=== PATIENT | male | born 1980 | race African-American/Black ===

== ENCOUNTER 2018-02-18 08:46 | Emergency (ER) | payer OTHER ==
[~2018-02-18] VITALS: Ht 190.5 cm; Wt 172.0 kg
[~2018-02-18 08:46] MED LIST: FLEX10TA PO; NAPR550 PO; Z.0.NO CURRENT MEDS
[2018-02-18 08:52] VITALS: BP 134/83; PULSE 84; RESP 16; TEMP 97.7; O2SAT 100
[2018-02-18] MEDS ORDERED: KETOROLAC TROMETHAMINE 60 MG/2 ML (IM) VIAL IM ONE (09:00)
[2018-02-18] MEDS ORDERED: HYDR25TA5 PO (09:01)
[2018-02-18] MEDS ORDERED: LOSA25TA PO (09:01)
[2018-02-18] MEDS ORDERED: IBUP-232 PO (09:04)
--- NOTE | 2018-02-18 09:05 | PD ---
HPI Chief Complaint: Fall Time Seen by Provider: 08:56 Travel History International Travel<30 days: No Contact w/Intl Traveler<30days: No Traveled to known affect area: No History of Present Illness HPI 37-year-old male describes pain in the lower back. He was leaning against a post, about 4 feet tall by 8 inches thick composed of concrete which was positioned in front of a [employer], when it fell over and rolled against the lower part of the back causing pain, 7/10. No urinary incontinence or fecal incontinence. No numbness tingling or weakness. No fall. No other injury to report. The injury occurred about 40 minutes prior to ER arrival. PFSH Past Medical History Diabetes: Yes Social History Alcohol Use: Yes (12 pack on the weekends) Tobacco Use: Yes (1 PPD) Allergies-Medications (Allergen,Severity, Reaction): Coded Allergies: No Known Allergies (Verified Allergy, Unknown, 02/18/18) acetaminophen (Verified Allergy, Unknown, 02/18/18) oxycodone (Verified Allergy, Unknown, 02/18/18) Reported Meds & Prescriptions Reported Meds & Active Scripts Active Flexeril (Cyclobenzaprine HCl) 10 Mg Tab 10 Mg PO BIDPRN 7 Days Anaprox Ds (Naproxen Sodium) 550 Mg Tab 1 Tab PO Q8 10 Days Reported No [facility] (Miscellaneous Medication) [facility] General / Constitutional: No: Fever Musculoskeletal: Positive: Pain Neurologic: No: Weakness, Dizziness, Focal Abnormalities, Ataxia, Paresthesia, Incontinence, Sensory Disturbance Physical Exam Narrative GENERAL: 37-year-old male well-nourished well-developed no acute distress Vital Signs Date Time Temp Pulse Resp B/P (MAP) Pulse Ox O2 Delivery O2 Flow Rate FiO2 02/18/18 08:52 97.7 84 16 134/83 (100) 100 SKIN: Warm and dry. HEAD: Normocephalic. EYES: No scleral icterus. No injection or drainage. NECK: Supple, trachea midline. No JVD or lymphadenopathy. CARDIOVASCULAR: Regular rate and rhythm without murmurs, gallops, or rubs. RESPIRATORY: Breath sounds equal bilaterally. No accessory muscle use. GASTROINTESTINAL: Abdomen soft, non-tender, nondistended. MUSCULOSKELETAL: No cyanosis, or edema. No focus of tenderness about the midline thoracolumbosacral spine. No tenderness to palpation in the region iliac crest on either side. NEUROLOGIC: 2+ patellar tendon reflexes. No ankle clonus. The patient is ambulatory. Cranial nerves normal. Moving all extremities normally. BACK: Nontender without obvious deformity. No CVA tenderness. Data Data Last Documented VS Vital Signs Date Time Temp Pulse Resp B/P (MAP) Pulse Ox O2 Delivery O2 Flow Rate FiO2 02/18/18 08:52 97.7 84 16 134/83 (100) 100 MDM Medical Decision Making Medical Screen Exam Complete: Yes Emergency Medical Condition: Yes Medical Record Reviewed: Yes Differential Diagnosis Contusion, abrasion, nerve root with injury, vertebral body injury Narrative Course Motrin as needed along with ice and/or hot compress and/or rest. Patient is ready for return to work. Injury severity is mild. Diagnosis Primary Impression: Injury of low back Qualified Codes: S39.92XA - Unspecified injury of lower back, initial encounter Referrals: Primary Care Physician 2 days Med/Other Pt SpecificInfo: Prescription(s) given Scripts Ibuprofen (Ibuprofen) 600 Mg Tab 600 MG PO Q8HR Y for PAIN, #20 TAB 0 Refills Prov: Arya Winchester MD 02/18/18 Disposition: 01 DISCHARGE HOME Condition: Stable Arya Winchester MD Feb 18, 2018 09:05
== END 2018-02-18 09:24 | disposition home or self-care (01) ==
LOC: PHED 08:46
DX: S39.92XA Unspecified injury of lower back, initial encounter (principal); E11.9 Type 2 diabetes mellitus without complications; F17.210 Nicotine dependence, cigarettes, uncomplicated; W20.8XXA Other cause of strike by thrown, projected or falling object, initial encounter; Y92.512 Supermarket, store or market as the place of occurrence of the external cause; Z88.5 Allergy status to narcotic agent
CPT/HCPCS: 96372; 99284; J1885